=== PATIENT | male | born 1950 | race African-American/Black ===

== ENCOUNTER 2017-11-21 07:30 | Inpatient (IN) | payer OTHER ==
[~2017-11-21] VITALS: Ht 193 cm; Wt 116.0 kg
[2017-12-18] MEDS ORDERED: CARV12.52 PO (13:43)
[2017-12-18] MEDS ORDERED: lovastatin PO (13:43)
[2017-12-18] MEDS ORDERED: GABA300C10 PO (13:43)
[2017-12-18] MEDS ORDERED: pantoprazole PO (13:43)
[2017-12-18] MEDS ORDERED: METF500T4 PO (13:43)
[2017-12-18] MEDS ORDERED: MULT-658 PO (13:44)
[2017-12-18] MEDS ORDERED: CYAN1TAB29 PO (13:44)
[2017-12-18] MEDS ORDERED: ASPI-496 PO (13:44)
[2017-12-26] MEDS ORDERED: BUPIVACAINE/PF 0.5% ONE (06:27)
[2017-12-26] MEDS ORDERED: BACITRACIN 50,000 UNIT ONE (06:27)
[2017-12-26] MEDS ORDERED: EPINEPHRINE 1 MG/ML, 1ML ONE (06:27)
[2017-12-26] MEDS ORDERED: THROMBIN 5,000 UNIT VIAL TP ONE (06:27)
[2017-12-26] MEDS ORDERED: LACTATED RINGERS 1,000 ML IV SCH (08:17)
[2017-12-26 08:19] VITALS: BP 160/90
[2017-12-26] MEDS ORDERED: PANT40TA5 PO (08:28)
[2017-12-26] MEDS ORDERED: LOVA40TA2 PO (08:28)
[2017-12-26] MEDS ORDERED: ACETAMINOPHEN 500 MG TABLET PO ONE (08:30)
[2017-12-26] MEDS ORDERED: OXYcodone IR 5MG TABLET PO ONE (08:30)
[2017-12-26] MEDS ORDERED: FENTANYL PF 250 MCG/5ML ONE (08:51)
[2017-12-26] MEDS ORDERED: PROPOFOL 50 ML ONE (08:51)
[2017-12-26] MEDS ORDERED: MIDAZOLAM 1 MG/ML, 2ML ONE (08:51)
[2017-12-26] MEDS ORDERED: KETAMINE 10 MG/ML, 20ML ONE (08:51)
[2017-12-26] MEDS ORDERED: LIDOCAINE GEL 2%, 5ML ONE (08:53)
[2017-12-26] MEDS ORDERED: PROPOFOL 10 MG/ML, 20ML ONE (08:57)
[2017-12-26] MEDS ORDERED: SUCCINYLCHOLINE 20 MG/ML, 10ML ONE (08:57)
[2017-12-26] MEDS ORDERED: DEXAMETHASONE 4 MG/ML, 1ML ONE ×2 (08:57→09:02)
[2017-12-26] MEDS ORDERED: CEFAZOLIN 1,000 MG ONE ×2 (08:57)
[2017-12-26] MEDS ORDERED: ONDANSETRON 2MG/ML, 2ML ONE (08:57)
[2017-12-26] MEDS ORDERED: PHENYLEPHRINE 10 MG/ML ONE (10:35)
[2017-12-26] MEDS ORDERED: ROCURONIUM 10MG/ML,5ML ONE (10:35)
[2017-12-26] MEDS ORDERED: THROMBIN 20,000 UNIT VIAL TP ONE (10:54)
[2017-12-26] MEDS ORDERED: LIDOCAINE-MPF 2% ,5ML ONE ×4 (11:26→12:39)
[2017-12-26] MEDS ORDERED: DIAZEPAM 5 MG/ML, 2ML IVPush PRN (11:30)
[2017-12-26] MEDS ORDERED: MIDAZOLAM 1 MG/ML, 2ML IV PRN (11:30)
[2017-12-26] MEDS ORDERED: ONDANSETRON 2MG/ML, 2ML IVPush PRN (11:30)
[2017-12-26] MEDS ORDERED: MEPERIDINE/PF 25MG/0.5ML IVPush PRN (11:30)
[2017-12-26] MEDS ORDERED: hydrALAzine 20 MG/ML, 1ML IV PRN (11:30)
[2017-12-26] MEDS ORDERED: PROMETHAZINE 25 MG/ML, 1ML IV PRN (11:30)
[2017-12-26] MEDS ORDERED: ALBUTEROL/IPRATROPIUM 2.5MG/0.5MG, 3 ML NPPB PRN (11:30)
[2017-12-26] MEDS ORDERED: morphine SULFATE 10 MG/ML, 1ML IV PRN (11:30)
[2017-12-26] MEDS ORDERED: FENTANYL PF 100 MCG/2ML IV PRN (11:30)
[2017-12-26] MEDS ORDERED: LABETALOL 5MG/ML, 20ML ONE ×2 (13:41→14:40)
[2017-12-26] MEDS ORDERED: ACETAMINOPHEN 650 MG/20.3 ML UDC ONE (14:06)
[2017-12-26] MEDS ORDERED: OXYcodone 5 MG/5 ML ORAL.SOL UDC ONE (14:06)
[2017-12-26] MEDS ORDERED: FENTANYL PF 100 MCG/2ML ONE (14:06)
[2017-12-26] MEDS: OXYcodone 5 MG/5 ML ORAL.SOL UDC PO PRN ×2 (14:24→14:55)
[2017-12-26] MEDS ORDERED: METOPROLOL 1 MG/ML, 5ML ONE (14:44)
[2017-12-26] MEDS: METOPROLOL 1 MG/ML, 5ML IV PRN ×3 (14:48→15:20)
[2017-12-26] MEDS ORDERED: ACETAMINOPHEN 325 MG TABLET PO PRN (15:00)
[2017-12-26 15:40] VITALS: BP 155/77
[2017-12-26] MEDS ORDERED: MAGNESIUM HYDROXIDE 8%, 30ML UDC PO PRN (17:00)
[2017-12-26] MEDS ORDERED: LABETALOL 5MG/ML, 20ML IV PRN (17:00)
[2017-12-26] MEDS ORDERED: DIPHENHYDRAMINE 50 MG/ML, 1ML IM PRN (17:00)
[2017-12-26] MEDS ORDERED: DIPHENHYDRAMINE 25 MG CAPSULE PO PRN (17:00)
[2017-12-26] MEDS ORDERED: BISACODYL 10 MG SUPP PR PRN (17:00)
[2017-12-26] MEDS ORDERED: ONDANSETRON 2MG/ML, 2ML IV PRN (17:00)
[2017-12-26] MEDS: metFORMIN 500 MG TABLET PO SCH (17:11)
[2017-12-26] MEDS: morphine SULFATE 10 MG/ML, 1ML IV PRN (17:11)
[2017-12-26] MEDS: CEFAZOLIN PMX 1GM/50ML 50 ML IVPB SCH (18:15)
[2017-12-26] MEDS: METHOCARBAMOL 750 MG TABLET PO PRN (18:31)
[2017-12-26 20:00] VITALS: BP 159/89
[2017-12-26] MEDS: GABAPENTIN 300 MG CAPSULE PO SCH (20:30)
[2017-12-26] MEDS: SENNA/DOCUSATE TABLET PO SCH (20:31)
[2017-12-26] MEDS ORDERED: LOVASTATIN 40 MG TABLET PO SCH (21:00)
[2017-12-26] MEDS: NS + 20MEQ KCL 1,000 ML IV SCH (21:32)
[2017-12-26] MEDS: INSULIN REGULAR 100 UNITS/ML, 3ML VIAL SQ-INSULIN SCH (21:33)
[2017-12-26] MEDS: HYDROcodone/APAP 10/325 MG TABLET PO PRN (22:25)
[2017-12-26 23:28] VITALS: BP 160/76
[2017-12-27] MEDS: DEXAMETHASONE 4 MG/ML, 1ML IVPush SCH ×3 (01:04→13:08)
[2017-12-27] MEDS: morphine SULFATE 10 MG/ML, 1ML IV PRN (01:07)
[2017-12-27] MEDS: CEFAZOLIN PMX 1GM/50ML 50 ML IVPB SCH (02:20)
[2017-12-27] MEDS: HYDROcodone/APAP 10/325 MG TABLET PO PRN ×3 (02:20→14:31)
[2017-12-27 04:00] VITALS: BP 156/84
[2017-12-27] MEDS: METHOCARBAMOL 750 MG TABLET PO PRN (04:09)
[2017-12-27 06:30] VITALS: BP 167/91
[2017-12-27] MEDS ORDERED: PANTOPROZOLE 40MG TABLET PO SCH (07:30)
[2017-12-27] MEDS: INSULIN REGULAR 100 UNITS/ML, 3ML VIAL SQ-INSULIN SCH ×2 (07:59→11:31)
[2017-12-27] MEDS: SENNA/DOCUSATE TABLET PO SCH (08:00)
[2017-12-27] MEDS: GABAPENTIN 300 MG CAPSULE PO SCH (08:00)
[2017-12-27] MEDS: metFORMIN 500 MG TABLET PO SCH (08:01)
[2017-12-27] MEDS ORDERED: MULTIVITAMIN 1 TABLET PO SCH (09:00)
[2017-12-27] MEDS: NS + 20MEQ KCL 1,000 ML IV SCH (10:00)
[2017-12-27 12:35] VITALS: BP 166/73
[2017-12-27 13:45] VITALS: BP 160/85
[2017-12-27] MEDS ORDERED: METH750T87 PO (14:25)
[2017-12-27] MEDS ORDERED: HYDR-3307 PO (14:25)
[2017-12-27] MEDS ORDERED: CALC300T5 PO (14:26)
[2017-12-27] MEDS ORDERED: CHOL100012 PO (14:26)
[2017-12-27] MEDS ORDERED: SENN1TAB7 PO (14:27)
== END 2017-12-27 14:58 | disposition home or self-care (01) | DRG 472 ==
LOC: ORIP 12-26 07:48 → 4NOR 12-26 15:42 → DCLOUNGE 12-27 14:40
PROVIDERS: ADMIT Neurological Surgery; ATTEND Neurological Surgery
PROC: 0RB30ZZ Excision of Cervical Vertebral Disc, Open Approach (ICD-10-PCS; 2017-12-26)
PROC: 01N10ZZ Release Cervical Nerve, Open Approach (ICD-10-PCS; 2017-12-26)
PROC: 4A11X4G Monitoring of Peripheral Nervous Electrical Activity, Intraoperative, External Approach (ICD-10-PCS; 2017-12-26)
PROC: 0RG20A0 Fusion of 2 or more Cervical Vertebral Joints with Interbody Fusion Device, Anterior Approach, Anterior Column, Open Approach (ICD-10-PCS; principal; 2017-12-26 10:00)
DX: M48.02 Spinal stenosis, cervical region (principal); M47.12 Other spondylosis with myelopathy, cervical region; M50.00 Cervical disc disorder with myelopathy, unspecified cervical region; E11.9 Type 2 diabetes mellitus without complications; I10 Essential (primary) hypertension; E78.00 Pure hypercholesterolemia, unspecified; Z82.49 Family history of ischemic heart disease and other diseases of the circulatory system; M54.12 Radiculopathy, cervical region; G47.33 Obstructive sleep apnea (adult) (pediatric); K21.9 Gastro-esophageal reflux disease without esophagitis; E78.5 Hyperlipidemia, unspecified
CPT/HCPCS: 36415; 72040; 82962; 86850; 86900; C1713; J0171; J0690; J1100; J1815; J2250; J2405; J2704; J3010; J3480; J3490; C1763; C1778; J0330; J2270; J2370; J7120

== ENCOUNTER → 2017-12-18 | Outpatient (CLI) | payer OTHER ==
[~2017-12-18] MED LIST: ASPI-496 PO; CARV12.52 PO; CYAN1TAB29 PO; GABA300C10 PO; METF500T4 PO; MULT-658 PO; lovastatin PO; pantoprazole PO
[2017-12-18 14:13] LABS: BASOPHILS # (AUTO) 0.02 x10^3/uL (0-0.1); BASOPHILS % (AUTO) 0 % (0-1); EOSINOPHILS # (AUTO) 0.19 x10^3/uL (0-0.4); EOSINOPHILS % (AUTO) 3 % (1-7); LYMPHOCYTES % (AUTO) 39 % (22-44); MD NO; MEAN CORPUSCULAR HEMOGLOBIN 31.6 pg (27.5-34.5); MEAN CORPUSCULAR HGB CONC 32.8 g/dL (33.2-36.2); MEAN CORPUSCULAR VOLUME 96.4 fL (81-97); MEAN PLATELET VOLUME 9.5 fL (7.4-10.4); MONOCYTES # (AUTO) 0.87 x10^3/uL (0.2-0.8); MONOCYTES % (AUTO) 12 % (2-9); NEUTROPHILS # (AUTO) 3.32 x10^3/uL (1.8-6.8); NEUTROPHILS % (AUTO) 46 % (42-75); PLATELET COUNT 188 x10^3/uL (130-400); RED BLOOD COUNT 4.17 x10^6/uL (4.38-5.82); RED CELL DISTRIBUTION WIDTH 13.6 % (9.4-14.8)
[2017-12-18 14:24] LABS: INTERNATIONAL NORMALIZED RATIO 0.99 (0.93-1.1); PROTHROMBIN TIME 10.2 Seconds (9.6-11.5)
[2017-12-18 14:28] LABS: CHLORIDE 107 mmol/L (98-107)
[2017-12-18 14:34] LABS: ALANINE AMINOTRANSFERASE 52 U/L (12-78); ALBUMIN 4.1 g/dL (3.4-5.0); ALKALINE PHOSPHATASE 116 U/L (45-117); ANION GAP 7 mmol/L (5-15); BILIRUBIN,TOTAL 0.6 mg/dL (0.2-1.0); CALCIUM 8.8 mg/dL (8.5-10.1); CREATININE 0.94 mg/dL (0.7-1.3)
== END | disposition home or self-care (01) ==
LOC: STAR 13:00
PROVIDERS: ATTEND Neurological Surgery
DX: Z01.818 Encounter for other preprocedural examination (principal); M50.00 Cervical disc disorder with myelopathy, unspecified cervical region; I10 Essential (primary) hypertension; E11.9 Type 2 diabetes mellitus without complications; I51.7 Cardiomegaly
CPT/HCPCS: 36415; 71046; 80053; 85025; 85610; 85730; 93005